=== PATIENT | male | born 1940 | race Caucasian/White ===

== ENCOUNTER 2019-02-03 10:48 | Inpatient (IN) | payer OTHER, MEDICARE ==
--- NOTE | 2019-02-03 11:05 | PDOC ---
History of Present Illness - General Chief Complaint: Palpitations Stated Complaint: SENT BY PCP Time Seen by Provider: 02/03/19 11:04 - History of Present Illness Initial Comments: 02/03/19 11:05 Mr. Montemayor is a 78 yo male w/ pmh of HTN, HLD, DM (currently managed with diet ) who presents on direction of PCP Dr. Prasad for evaluation of afib noted in office today. Patient otherwise has no complaints at this time and feels his normal self. The patient denies chest pain, shortness of breath, headache and dizziness. Denies fever, chills, nausea, vomit, diarrhea and constipation. Denies dysuria, frequency, urgency and hematuria. Past History - Past Medical History Allergies/Adverse Reactions: Allergies Allergy/AdvReac Type Severity Reaction Status Date / Time No Known Allergies Allergy Verified 02/03/19 10:56 Home Medications: Ambulatory Orders Aspirin [Ecotrin] 81 mg PO DAILY 02/03/19 Dutasteride [Avodart] 0.5 mg PO DAILY 02/03/19 Lisinopril [Prinivil] 5 mg PO DAILY 02/03/19 Lopressor - 100 mg PO BID 02/03/19 Metformin HCl [Metformin HCl ER] 500 mg PO DAILY 02/03/19 Simvastatin [Zocor] 10 mg PO HS 02/03/19 Cardiac Disorders: Yes (new a-fib) COPD: No Diabetes: Yes HTN: Yes Hypercholesterolemia: Yes - Psycho Social/Smoking Cessation Hx Smoking History: Never smoked Information on smoking cessation initiated: No Hx Alcohol Use: No Drug/Substance Use Hx: No Review of Systems - Review of Systems Comments:: 02/03/19 11:05 GENERAL/CONSTITUTIONAL: No fever or chills. No weakness. HEAD, EYES, EARS, NOSE AND THROAT: No change in vision. No ear pain or discharge. No sore throat. CARDIOVASCULAR: No chest pain or shortness of breath RESPIRATORY: No cough, wheezing, or hemoptysis. GASTROINTESTINAL: No nausea, vomiting, diarrhea or constipation. GENITOURINARY: No dysuria, frequency, or change in urination. MUSCULOSKELETAL: No joint or muscle swelling or pain. No neck or back pain. SKIN: No rash NEUROLOGIC: No headache, vertigo, loss of consciousness, or change in strength/ sensation. ENDOCRINE: No increased thirst. No abnormal weight change HEMATOLOGIC/LYMPHATIC: No anemia, easy bleeding, or history of blood clots. ALLERGIC/IMMUNOLOGIC: No hives or skin allergy. *Physical Exam - Vital Signs Last Vital Signs Temp Pulse Resp BP Pulse Ox 98.3 F 133 H 19 107/74 99 02/03/19 10:50 02/03/19 10:50 02/03/19 10:50 02/03/19 10:50 02/03/19 10:50 - Physical Exam Comments: 02/03/19 11:05 GENERAL: Awake, alert, and fully oriented, in no acute distress HEAD: No signs of trauma, normocephalic, atraumatic EYES: PERRLA, EOMI, sclera anicteric, conjunctiva clear ENT: Auricles normal inspection, hearing grossly normal, nares patent, oropharynx clear without exudates. Moist mucosa NECK: Normal ROM, supple, no lymphadenopathy, JVD, or masses LUNGS: No distress, speaks full sentences, clear to auscultation bilaterally HEART: +Tachycardic rate, afib rhytm, normal S1 and S2, no murmurs, rubs or gallops, peripheral pulses normal and equal bilaterally. ABDOMEN: Soft, nontender, normoactive bowel sounds. No guarding, no rebound. No masses EXTREMITIES: Normal inspection, Normal range of motion, no edema. No clubbing or cyanosis. NEUROLOGICAL: Cranial nerves II through XII grossly intact. Normal speech, normal gait, no focal sensorimotor deficits SKIN: Warm, Dry, normal turgor, no rashes or lesions noted. ED Treatment Course - LABORATORY CBC & Chemistry Diagram: 02/03/19 11:25 02/03/19 11:25 Medical Decision Making - Medical Decision Making 02/03/19 11:12 Mr. Montemayor is a 78 yo male w/ pmh as described who presents with new onset asymptomatic afib. Patient evaluated with cardiac labs and given diltiazem for treatment of tachycardia. Patient exam otherwise non-contributory. Patient will be admitted for further cardiac evaluation and care. Laboratory Results - last 24 hr 02/03/19 02/03/19 02/03/19 11:25 11:25 11:25 WBC 7.3 RBC 5.01 Hgb 15.9 Hct 47.2 MCV 94.3 MCH 31.8 MCHC 33.7 RDW 13.2 Plt Count 252 MPV 9.5 D Absolute Neuts (auto) 5.0 Neutrophils % 67.7 Lymphocytes % 22.7 Monocytes % 7.2 Eosinophils % 1.8 Basophils % 0.6 Nucleated RBC % 0 PT with INR INR PTT (Actin FS) Sodium 141 Potassium 4.6 Chloride 108 H Carbon Dioxide 27 Anion Gap 6 L BUN 18.0 Creatinine 0.9 Est GFR (CKD-EPI)AfAm 93.82 Est GFR (CKD-EPI)NonAf 80.95 Random Glucose 90 Calcium 9.8 Total Bilirubin 0.4 AST 18 ALT 32 Alkaline Phosphatase 50 Creatine Kinase 40 Troponin I < 0.02 Total Protein 7.5 Albumin 3.9 TSH 1.54 Urine Color Urine Appearance Urine pH Ur Specific [place] Urine Protein Urine Glucose (UA) Urine Ketones Urine Blood Urine Nitrite Urine Bilirubin Urine Urobilinogen Ur Leukocyte Esterase 02/03/19 02/03/19 11:25 11:39 WBC RBC Hgb Hct MCV MCH MCHC RDW Plt Count MPV Absolute Neuts (auto) Neutrophils % Lymphocytes % Monocytes % Eosinophils % Basophils % Nucleated RBC % PT with INR 12.90 INR 1.09 PTT (Actin FS) 31.8 Sodium Potassium Chloride Carbon Dioxide Anion Gap BUN Creatinine Est GFR (CKD-EPI)AfAm Est GFR (CKD-EPI)NonAf Random Glucose Calcium Total Bilirubin AST ALT Alkaline Phosphatase Creatine Kinase Troponin I Total Protein Albumin TSH Urine Color Dk yellow Urine Appearance Clear Urine pH 5.0 Ur Specific [place] 1.019 Urine Protein Trace Urine Glucose (UA) Negative Urine Ketones Negative Urine Blood Negative Urine Nitrite Negative Urine Bilirubin Negative Urine Urobilinogen 0.2 Ur Leukocyte Esterase Negative Discharge - Discharge Information Problems reviewed: Yes Clinical Impression/Diagnosis: Afib Qualifiers: Atrial fibrillation type: unspecified Qualified Code(s): I48.91 - Unspecified atrial fibrillation - Admission Yes - Follow up/Referral - Patient Discharge Instructions - Post Discharge Activity
[2019-02-03 11:47] LABS: BASO % 0.6 % (0-2.0); EOS % 1.8 % (0-4.5); HEMATOCRIT 47.2 % (35.4-49); HEMOGLOBIN 15.9 GM/dL (11.7-16.9); LYMPH % 22.7 % (8-40); MCH 31.8 pg (25.7-33.7); MCHC 33.7 g/dl (32.0-35.9); MEAN CELL VOLUME 94.3 fl (80-96); MEAN PLT VOLUME 9.5 fl (7.5-11.1); MONO % 7.2 % (3.8-10.2); NEUT % 67.7 % (42.8-82.8); PLATELET COUNT 252 K/MM3 (134-434); RBC 5.01 M/mm3 (4.00-5.60); RDW 13.2 % (11.9-15.9); WHITE BLOOD COUNT 7.3 K/mm3 (4.0-10.0)
[2019-02-03 11:53] LABS: URINE APPEARANCE CLEAR; URINE BILIRUBIN NEGATIVE (NEGATIVE); URINE COLOR DK YELLOW; URINE GLUCOSE (UA) NEGATIVE (NEGATIVE); URINE KETONE NEGATIVE (NEGATIVE); URINE LEUK ESTERASE NEGATIVE (NEGATIVE); URINE NITRITE NEGATIVE (NEGATIVE); URINE PROTEIN TRACE (NEGATIVE); URINE UROBILINOGEN 0.2 mg/dL (0.2-1.0)
[2019-02-03 12:00] LABS: INR 1.09 (0.83-1.09); PROTHROMBIN TIME (PATIENT) 12.9 SEC (9.7-13.0)
[2019-02-03 12:03] LABS: ACTIVATED PTT 31.8 SECONDS (25.2-36.5)
[2019-02-03 12:16] LABS: ALBUMIN 3.9 g/dl (3.4-5.0); ALK PHOS 50 U/L (45-117); ANION GAP 6 MMOL/L (8-16); BILIRUBIN,TOTAL 0.4 mg/dL (0.2-1); CALCIUM 9.8 mg/dL (8.5-10.1); CHLORIDE 108 mmol/L (98-107); CO2 27 mmol/L (21-32); CREATININE 0.9 mg/dL (0.55-1.3); GLUCOSE,RANDOM 90 mg/dL (74-106); POTASSIUM 4.6 mmol/L (3.5-5.1); SGOT/AST 18 U/L (15-37); SGPT/ALT 32 U/L (13-61); SODIUM 141 mmol/L (136-145); TOT PROT 7.5 g/dl (6.4-8.2)
[2019-02-03] MEDS ORDERED: SODIUM CHLORIDE 1,000 ML IV STA (12:23)
[2019-02-03] MEDS ORDERED: dilTIAZem HCL 50 MG/10 ML - 10 ML VIAL IVPUSH ONE (12:23)
--- NOTE | 2019-02-03 12:37 | PDOC ---
Attending Attestation - Resident Resident Name: Rashel Almazan - ED Attending Attestation I have performed the following: I have examined & evaluated the patient, The case was reviewed & discussed with the resident, I agree w/resident's findings & plan, Exceptions are as noted - HPI HPI: 02/03/19 12:31 78-year-old male history of hypertension recently diagnosed diabetes here today from his primary's office for noted irregular heartbeat and tachycardia. Patient denies any current symptoms. Denies feeling short of breath no chest pain no palpitations. Also denies any cough or recent infectious symptoms no urinary complaints. No history of previous dysrhythmia or VT overall has no current complaints - Physicial Exam PE: 02/03/19 12:36 awake alert lungs clear bilat heart irreg reg no mrg abd soft nt nd ext wwp. no edema. no calf tenderness, skin warm and dry. 02/03/19 13:00 - Medical Decision Making 02/03/19 12:40 78-year-old male history of hypertension and diabetes here with new onset A. fib with RVR. Patient's rate in the emergency part is ranging from 79-130. Will rule out underlying letter to light abnormality or anemia, VT, or thyroid abnormalities. Patient was seen at the bedside by Khoa Quezada who will admit the patient to telemetry. Chest x-ray to rule out any underlying infection or edema Heart Score/ECG Review #1 Compared to previous ECG there are: Other (irreg irreg. rate 129. aflutter, with fib. no st t wave elevation or depression.)
[2019-02-03] MEDS ORDERED: METOPROLOL TARTRATE 50 MG TABLET (FP) PO ONE (12:50)
--- NOTE | 2019-02-03 12:57 | HP ---
Admitting History and Physical - Primary Care Physician PCP: King Stone - Admission Chief Complaint: abnormal heart beat History of Present Illness: Asymptomatic 78 YO M with hx lipidemia; DM; Htn, BPH who was sent from PCP's office (Dr Prasad) to ER after he was found to be in new onset rapid atrial fibrillation. he states to being active around the house as usual and has had no complaints or any CP; SOB, dizziness, leg swelling etc. He was seen by his PCP just for a periodic routine "check up". he denies use of alcoholic drinks, smoking, excessive stress. His glucoses usually range in the low 100's and according to PCP, he recent A1c was 5.8. 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 - Smoking History Smoking history: Never smoked - Alcohol/Substance Use Hx Alcohol Use: No History of Substance Use: reports: None - Social History Usual Living Arrangement: Yes: With Spouse ADL: Independent Occupation: retired building superintendant History of Recent Travel: No Home Medications - Allergies Allergies/Adverse Reactions: Allergies Allergy/AdvReac Type Severity Reaction Status Date / Time No Known Allergies Allergy Verified 02/03/19 10:56 - Home Medications Home Medications: Ambulatory Orders Aspirin [Ecotrin] 81 mg PO DAILY 02/03/19 Dutasteride [Avodart] 0.5 mg PO DAILY 02/03/19 Lisinopril [Prinivil] 5 mg PO DAILY 02/03/19 Lopressor - 100 mg PO BID 02/03/19 Metformin HCl [Metformin HCl ER] 500 mg PO DAILY 02/03/19 Simvastatin [Zocor] 10 mg PO HS 02/03/19 Family Medical History Family History: Unremarkable Review of Systems - Review of Systems Constitutional: reports: No Symptoms Eyes: reports: No Symptoms HENT: reports: No Symptoms Neck: reports: No Symptoms Cardiovascular: reports: No Symptoms Respiratory: reports: No Symptoms Gastrointestinal: reports: No Symptoms Genitourinary: reports: Frequency Musculoskeletal: reports: No Symptoms Integumentary: reports: No Symptoms Neurological: reports: No Symptoms Endocrine: reports: No Symptoms Hematology/Lymphatic: reports: No Symptoms Psychiatric: reports: No Symptoms Physical Examination Vital Signs: Vital Signs Temperature 98.4 F 02/03/19 11:41 Pulse Rate 107 H 02/03/19 11:41 Respiratory Rate 16 02/03/19 11:41 Blood Pressure 125/83 02/03/19 11:41 O2 Sat by Pulse Oximetry (%) 100 02/03/19 11:41 Findings/Remarks: skin--no remarkable lesions appreciated head--NC eyes--eomi; anicteric pupils equal oral--partial dentures, no mucosal lesions, no droop neck--no masses, nodes goiter or bruits lungs--grossly clear heart--Irreg abd--benign back--no spinal tenderness --deferred to PCP ext--dimnished pedal pulses; no ischemic changes; no CCE; ROM is painless; absent Rt 1st toe neuro--alert; lucid; coherent, no gross focal deficits appreciated Laboratory Tests 02/03/19 02/03/19 02/03/19 11:25 11:25 11:25 WBC 7.3 RBC 5.01 Hgb 15.9 Hct 47.2 MCV 94.3 MCH 31.8 MCHC 33.7 RDW 13.2 Plt Count 252 MPV 9.5 D Absolute Neuts (auto) 5.0 Neutrophils % 67.7 Lymphocytes % 22.7 Monocytes % 7.2 Eosinophils % 1.8 Basophils % 0.6 Nucleated RBC % 0 PT with INR INR PTT (Actin FS) Sodium 141 Potassium 4.6 Chloride 108 H Carbon Dioxide 27 Anion Gap 6 L BUN 18.0 Creatinine 0.9 Est GFR (CKD-EPI)AfAm 93.82 Est GFR (CKD-EPI)NonAf 80.95 Random Glucose 90 Calcium 9.8 Total Bilirubin 0.4 AST 18 ALT 32 Alkaline Phosphatase 50 Creatine Kinase 40 Troponin I < 0.02 Total Protein 7.5 Albumin 3.9 TSH 1.54 Urine Color Urine Appearance Urine pH Ur Specific [place] Urine Protein Urine Glucose (UA) Urine Ketones Urine Blood Urine Nitrite Urine Bilirubin Urine Urobilinogen Ur Leukocyte Esterase 02/03/19 02/03/19 11:25 11:39 WBC RBC Hgb Hct MCV MCH MCHC RDW Plt Count MPV Absolute Neuts (auto) Neutrophils % Lymphocytes % Monocytes % Eosinophils % Basophils % Nucleated RBC % PT with INR 12.90 INR 1.09 PTT (Actin FS) 31.8 Sodium Potassium Chloride Carbon Dioxide Anion Gap BUN Creatinine Est GFR (CKD-EPI)AfAm Est GFR (CKD-EPI)NonAf Random Glucose Calcium Total Bilirubin AST ALT Alkaline Phosphatase Creatine Kinase Troponin I Total Protein Albumin TSH Urine Color Dk yellow Urine Appearance Clear Urine pH 5.0 Ur Specific [place] 1.019 Urine Protein Trace Urine Glucose (UA) Negative Urine Ketones Negative Urine Blood Negative Urine Nitrite Negative Urine Bilirubin Negative Urine Urobilinogen 0.2 Ur Leukocyte Esterase Negative Labs: CBC, BMP 02/03/19 11:25 02/03/19 11:25 Imaging - Results EKG: Report Reviewed Problem List - Problems (1) Atrial flutter with rapid ventricular response Assessment/Plan: mostly rapid with periods of slowing. New onset w/o Sx or hemodynamic fluctuations. PLAN: slow HR; monitoring; Cardio consult; may need a/c Code(s): I48.92 - UNSPECIFIED ATRIAL FLUTTER (2) Hypertension Assessment/Plan: longstanding; BP had been controlled with MICHELLE-I and BB Code(s): I10 - ESSENTIAL (PRIMARY) HYPERTENSION Qualifiers: Hypertension type: unspecified Qualified Code(s): I10 - Essential (primary ) hypertension (3) Lipid disorder Assessment/Plan: on Statin; check levels Code(s): E78.9 - DISORDER OF LIPOPROTEIN METABOLISM, UNSPECIFIED (4) BPH (benign prostatic hyperplasia) Assessment/Plan: mild Sx; Tx with adovart Code(s): N40.0 - BENIGN PROSTATIC HYPERPLASIA WITHOUT LOWER URINRY TRACT SYMP Qualifiers: Lower urinary tract symptom presence: symptoms present Assessment/Plan 78 YO with new onset rapid atrial fib/flutter; Mgmt as above ~~~~~~~~~~~~~~~~~~~~~~~~~~~~~~~~~ Dr Stone
[2019-02-03] MEDS ORDERED: dilTIAZem HCL 125 MG/25 ML - 25 ML VIAL ONE (13:27)
[2019-02-03] MEDS ORDERED: METOPROLOL TARTRATE 50 MG TABLET (FP) ONE (13:38)
--- NOTE | 2019-02-03 16:11 | EKG ---
Test Reason : Blood Pressure : / mmHG Vent. Rate : 062 BPM Atrial Rate : 272 BPM P-R Int : 000 ms QRS Dur : 088 ms QT Int : 394 ms P-R-T Axes : -89 007 038 degrees QTc Int : 399 ms ATRIAL FLUTTER WITH VARIABLE A-V BLOCK ABNORMAL ECG WHEN COMPARED WITH ECG OF 03-FEB-2019 11:00, T WAVE VARIATION Confirmed by JULIANNE HASTINGS MD ([id number]) on 02/03/2019 4:11:24 PM Referred By: Confirmed By:JULIANNE HASTINGS MD
--- NOTE | 2019-02-03 16:15 | EKG ---
Test Reason : Blood Pressure : / mmHG Vent. Rate : 126 BPM Atrial Rate : 129 BPM P-R Int : 000 ms QRS Dur : 090 ms QT Int : 322 ms P-R-T Axes : 000 012 029 degrees QTc Int : 466 ms ATRIAL VLUTTER WITH RAPID VENTRICULAR RESPONSE NONSPECIFIC T WAVE ABNORMALITY ABNORMAL ECG NO PREVIOUS ECGS AVAILABLE Confirmed by DARLING OCHOA, JULIANNE ([id number]) on 02/03/2019 4:15:08 PM Referred By: Confirmed By:JULIANNE HASTINGS MD
[2019-02-03 18:33] VITALS: BMI 26.9
--- NOTE | 2019-02-03 19:28 | CON.CARD ---
Consult Consult Specialty:: Cardiology - History of Present Illness History of Present Illness: 78 YO M with hx lipidemia; DM; Htn, BPH who was sent from PCP's office (Dr Prasad) to ER after he was found to be in new onset rapid atrial fibrillation. he states to being active around the house as usual and has had no complaints or any CP; SOB, dizziness, leg swelling etc. He was seen by his PCP just for a periodic routine "check up". he denies use of alcoholic drinks, smoking, excessive stress. His glucoses usually range in the low 100's and according to PCP, he recent A1c was 5.8. - History Source History Provided By: Patient, Medical Record - Past Medical History Cardio/Vascular: Yes: HTN, Hyperlipdemia Renal/: Yes: BPH - Alcohol/Substance Use Hx Alcohol Use: No History of Substance Use: reports: None - Smoking History Smoking history: Never smoked - Social History ADL: Independent Occupation: retired building superintendant History of Recent Travel: No Home Medications - Allergies Allergies/Adverse Reactions: Allergies Allergy/AdvReac Type Severity Reaction Status Date / Time No Known Allergies Allergy Verified 02/03/19 10:56 - Home Medications Home Medications: Ambulatory Orders Aspirin [Ecotrin] 81 mg PO DAILY 02/03/19 Dutasteride [Avodart] 0.5 mg PO DAILY 02/03/19 Lisinopril [Prinivil] 5 mg PO DAILY 02/03/19 Lopressor - 100 mg PO BID 02/03/19 Metformin HCl [Metformin HCl ER] 500 mg PO DAILY 02/03/19 Simvastatin [Zocor] 10 mg PO HS 02/03/19 Review of Systems - Review of Systems Constitutional: reports: No Symptoms Eyes: reports: No Symptoms HENT: reports: No Symptoms Neck: reports: No Symptoms Cardiovascular: reports: No Symptoms Respiratory: reports: No Symptoms Gastrointestinal: reports: No Symptoms Genitourinary: reports: No Symptoms Breasts: reports: No Symptoms Reported Musculoskeletal: reports: No Symptoms Integumentary: reports: No Symptoms Neurological: reports: No Symptoms Endocrine: reports: No Symptoms Hematology/Lymphatic: reports: No Symptoms Psychiatric: reports: No Symptoms Vital Signs: Vital Signs Temperature 97.8 F 02/03/19 18:00 Pulse Rate 67 02/03/19 18:00 Respiratory Rate 18 02/03/19 18:00 Blood Pressure 139/71 02/03/19 18:00 O2 Sat by Pulse Oximetry (%) 95 02/03/19 18:00 Constitutional: Yes: Well Nourished, No Distress, Calm Eyes: Yes: WNL, Conjunctiva Clear, EOM Intact HENT: Yes: WNL, Atraumatic, Normocephalic Neck: Yes: WNL, Supple, Trachea Midline Respiratory: Yes: WNL, Regular, CTA Bilaterally Gastrointestinal: Yes: WNL, Normal Bowel Sounds Renal/: Yes: WNL Cardiovascular: Yes: Pulse Irregular Musculoskeletal: Yes: WNL Extremities: Yes: WNL Integumentary: Yes: WNL Neurological: Yes: WNL, Alert, Oriented ...Motor Strength: WNL Psychiatric: Yes: WNL, Alert, Oriented - Other Data Labs, Other Data: CBC, BMP 02/03/19 11:25 02/03/19 11:25 INR, PTT INR 1.09 (0.83-1.09) 02/03/19 11:25 Troponin, BNP 02/03/19 11:25 Troponin I < 0.02 Troponin, BNP 02/03/19 11:25 Troponin I < 0.02 Imaging - Results Chest X-ray: Pending EKG: Image Reviewed (af lutter variable block) Problem List - Problems (1) Afib Code(s): I48.91 - UNSPECIFIED ATRIAL FIBRILLATION Qualifiers: Atrial fibrillation type: unspecified Qualified Code(s): I48.91 - Unspecified atrial fibrillation (2) Atrial flutter with rapid ventricular response Code(s): I48.92 - UNSPECIFIED ATRIAL FLUTTER (3) BPH (benign prostatic hyperplasia) Code(s): N40.0 - BENIGN PROSTATIC HYPERPLASIA WITHOUT LOWER URINRY TRACT SYMP Qualifiers: Lower urinary tract symptom presence: symptoms present (4) Hypertension Code(s): I10 - ESSENTIAL (PRIMARY) HYPERTENSION Qualifiers: Hypertension type: unspecified Qualified Code(s): I10 - Essential (primary ) hypertension (5) Lipid disorder Code(s): E78.9 - DISORDER OF LIPOPROTEIN METABOLISM, UNSPECIFIED Assessment/Plan 78 YO M with hx lipidemia; DM; Htn, BPH who was sent from PCP's office (Dr Prasad) to ER after he was found to be in new onset rapid atrial flutter. he states to being active around the house as usual and has had no complaints or any CP; SOB, dizziness, leg swelling etc. He was seen by his PCP just for a periodic routine "check up". he denies use of alcoholic drinks, smoking, excessive stress. His glucoses usually range in the low 100's and according to PCP, he recent A1c was 5.8. Plan; Telemetry ECHO AC Rate control Further course will depend on ECHO results - ?ERMIAS guided cardioversion vs fpc AC
[2019-02-03] MEDS: APIXABAN 5 MG TABLET PO SCH (21:48)
[2019-02-03] MEDS: METOPROLOL TARTRATE 50 MG TABLET (FP) PO SCH (21:48)
[2019-02-03] MEDS ORDERED: APIXABAN 5 MG TABLET PO ONE (22:00)
[2019-02-04] MEDS: METOPROLOL TARTRATE 50 MG TABLET (FP) PO SCH ×5 (06:33→23:05)
[2019-02-04 07:38] LABS: BLOOD UREA NITROGEN 16.3 mg/dL (7-18); CALCIUM 8.9 mg/dL (8.5-10.1); CREATININE 0.9 mg/dL (0.55-1.3); POTASSIUM 4.5 mmol/L (3.5-5.1)
--- NOTE | 2019-02-04 09:48 | PN ---
Progress Note, Physician Chief Complaint: Pt is A&Ox3; asymptomatic. History of Present Illness: 78-year-old white man (b. Jorge Alberto), with PM history of hypertension, recently diagnosed diabetes, admitted yesterday when sent from his primary's office for noted irregular heartbeat and tachycardia, and found to be in ?new-onset atrial flutter. Patient denies any current symptoms. Denies feeling short of breath no chest pain no palpitations. Also denies any cough or recent infectious symptoms no urinary complaints. No history of previous dysrhythmia or ND; overall has no current complaints - Current Medication List Current Medications: Active Medications Apixaban (Eliquis -) 5 mg PO BID [facility] Last Admin: 02/03/19 21:48 Dose: 5 mg Metoprolol Tartrate (Lopressor -) 50 mg PO TID [facility] Last Admin: 02/04/19 06:33 Dose: 50 mg - Objective Vital Signs: Vital Signs Temperature 97.6 F 02/04/19 05:00 Pulse Rate 69 02/04/19 05:00 Respiratory Rate 20 02/04/19 05:00 Blood Pressure 113/70 02/04/19 05:00 O2 Sat by Pulse Oximetry (%) 97 02/03/19 20:44 Constitutional: Yes: Well Nourished, Calm Eyes: Yes: WNL HENT: Yes: WNL Neck: Yes: WNL Cardiovascular: Yes: Pulse Irregular, S1 (varies ijn intensity), S2 Respiratory: Yes: WNL Gastrointestinal: Yes: Soft Genitourinary: Yes: WNL Breast(s): Yes: WNL Musculoskeletal: Yes: WNL Extremities: Yes: WNL Edema: No Peripheral Pulses WNL: Yes Integumentary: Yes: WNL Wound/Incision: Yes: Other (NA) Neurological: Yes: WNL ...Motor Strength: WNL Psychiatric: Yes: WNL Labs: CBC, BMP 02/03/19 11:25 02/04/19 05:30 INR, PTT INR 1.09 (0.83-1.09) 02/03/19 11:25 Abnormal Lab Results 02/03/19 02/04/19 11:25 05:30 Chloride 108 H 108 H Anion Gap 6 L 5 L Random Glucose 130 H HDL Cholesterol 32 L Problem List - Problems (1) Atrial flutter Code(s): I48.92 - UNSPECIFIED ATRIAL FLUTTER (2) New onset atrial flutter Assessment/Plan: On metoprolol tartrate 50 mg tid; change to ER if VR remains controlled. Telemetry: Atrial flutter with variable AV block F/u ECHO for LVEF, chamber sizes, valve status. Consider ERMIAS-guided cardioversion (especially if LA sizes is relatively normal). Code(s): I48.92 - UNSPECIFIED ATRIAL FLUTTER (3) Hypertension Assessment/Plan: on metoprolol; BP well-controlled. Code(s): I10 - ESSENTIAL (PRIMARY) HYPERTENSION Qualifiers: Hypertension type: unspecified Qualified Code(s): I10 - Essential (primary ) hypertension (4) Lipid disorder Code(s): E78.9 - DISORDER OF LIPOPROTEIN METABOLISM, UNSPECIFIED
[2019-02-04] MEDS: APIXABAN 5 MG TABLET PO SCH ×2 (09:50→23:06)
--- NOTE | 2019-02-04 13:06 | ECHO ---
Version: 1 Name: DOMENIC ZAMBRANO Exam: Adult Echocardiogram Study Date: 02/04/2019, 7:26 AM Age: 78 Years MMode/2D Measurements & Calculations IVSd: 1.16 cm LVIDs: 2.32 cm LVIDd: 3.4 cm LVPWd: 1.11 cm LAV (MOD-bp): 72.9 ml LVOT diam: 1.97 cm Ao root diam: 3.1 cm LA dimension: 3.6 cm Doppler Measurements & Calculations MV E max jonah: 86.3 cm/sec Med E/e': 11.2 MV A max jonah: 47.5 cm/sec Med Peak E' Jonah: 7.7 cm/sec MV E/A: 1.82 Lat E/e': 5.5 Lat Peak E' Jonah: 15.7 cm/sec MR max P.8 mmHg Ao max P.1 mmHg Ao V2 max: 112.7 cm/sec AI P1/2t: 391.1 msec TR max jonah: 265.5 cm/sec TR max P.9 mmHg Left Ventricle The left ventricular size, thickness and function are normal. Ejection Fraction = 65%. The transmitr al spectral Doppler flow pattern is suggestive of impaired LV relaxation. Right Ventricle The right ventricle is normal in size and function. Atria Normal left and right atrial size and function. Mitral Valve There is mild mitral annular calcification. There is trace to mild mitral regurgitation. Tricuspid Valve The tricuspid valve is normal in structure and function. There is mild tricuspid regurgitation. Aortic Valve There is mild to moderate aortic sclerosis.;. Pulmonic Valve The pulmonic valve is not well visualized. Great Vessels The aortic root is normal size. Normal aortic arch, descending and ascending aorta. Pericardium/Pleura There is no pericardial effusion. Summary Statements The left ventricular size, thickness and function are normal Ejection Fraction = 65%. The transmitral spectral Doppler flow pattern is suggestive of impaired LV relaxation. The right ventricle is normal in size and function. Normal left and right atrial size and function. There is mild mitral annular calcification. There is trace to mild mitral regurgitation. The tricuspid valve is normal in structure and function. There is mild tricuspid regurgitation. There is mild to moderate aortic sclerosis.; The pulmonic valve is not well visualized. The aortic root is normal size. Normal aortic arch, descending and ascending aorta There is no pericardial effusion. Fred Patterson 02/04/2019, 12:05 PM Ordering Physician: King Stone Performed By: Kate Durham
--- NOTE | 2019-02-04 13:55 | PN ---
Progress Note (short form) - Note Progress Note: Current Medications Active Medications Apixaban (Eliquis -) 5 mg PO BID [facility] Last Admin: 02/04/19 09:50 Dose: 5 mg Metoprolol Tartrate (Lopressor -) 50 mg PO TID [facility] Last Admin: 02/04/19 13:31 Dose: 50 mg Laboratory Results - last 24 hr 02/03/19 02/04/19 02/04/19 21:00 05:30 05:30 Sodium 141 Potassium 4.5 Chloride 108 H Carbon Dioxide 27 Anion Gap 5 L BUN 16.3 Creatinine 0.9 Est GFR (CKD-EPI)AfAm 93.82 Est GFR (CKD-EPI)NonAf 80.95 POC Glucometer Random Glucose 130 H Hemoglobin A1c % 5.7 Calcium 8.9 Creatine Kinase 34 Troponin I < 0.02 Triglycerides 83 Cholesterol 122 Total LDL Cholesterol 75 HDL Cholesterol 32 L 02/04/19 05:47 Sodium Potassium Chloride Carbon Dioxide Anion Gap BUN Creatinine Est GFR (CKD-EPI)AfAm Est GFR (CKD-EPI)NonAf POC Glucometer 117 Random Glucose Hemoglobin A1c % Calcium Creatine Kinase Troponin I Triglycerides Cholesterol Total LDL Cholesterol HDL Cholesterol Vital Signs Period Temp Pulse Resp BP Sys/Larson Pulse Ox Last 24 Hr 97.6 F-98.2 F 67-73 16-20 109-139/62-73 95-98 CC: none today ````````````````` skin--Nl color heart--rapid at this time lungs--clear ext--no edema neuro--alert, lucid; coherent in NAD ``````````````````````````````````` Summ > ATF--variable HR; was fluctuating over night; was less tachy this AM, but now running at approx 120/min: PLAN: increase the BB to Q6H > Htn--BP is in good range > DM--T2; BS low 100's > Lipidemia--levels in good range; cont statin ````````````````` Dr Stone Problem List - Problems (1) Atrial flutter with rapid ventricular response Code(s): I48.92 - UNSPECIFIED ATRIAL FLUTTER (2) Hypertension Code(s): I10 - ESSENTIAL (PRIMARY) HYPERTENSION Qualifiers: Hypertension type: unspecified Qualified Code(s): I10 - Essential (primary ) hypertension (3) Lipid disorder Code(s): E78.9 - DISORDER OF LIPOPROTEIN METABOLISM, UNSPECIFIED (4) BPH (benign prostatic hyperplasia) Code(s): N40.0 - BENIGN PROSTATIC HYPERPLASIA WITHOUT LOWER URINRY TRACT SYMP Qualifiers: Lower urinary tract symptom presence: symptoms present
[2019-02-04 19:34] LABS: MAGNESIUM 1.9 mg/dL (1.8-2.4)
[2019-02-05] MEDS: METOPROLOL TARTRATE 50 MG TABLET (FP) PO SCH ×4 (06:43→23:21)
[2019-02-05] MEDS: APIXABAN 5 MG TABLET PO SCH ×2 (10:06→22:31)
--- NOTE | 2019-02-05 11:22 | PN ---
Progress Note, Physician History of Present Illness: 78 YO M with hx lipidemia; DM; Htn, BPH who was sent from PCP's office (Dr Prasad) to ER after he was found to be in new onset rapid atrial fibrillation. he states to being active around the house as usual and has had no complaints or any CP; SOB, dizziness, leg swelling etc. He was seen by his PCP just for a periodic routine "check up". he denies use of alcoholic drinks, smoking, excessive stress. His glucoses usually range in the low 100's and according to PCP, he recent A1c was 5.8. - Current Medication List Current Medications: Active Medications Apixaban (Eliquis -) 5 mg PO BID [facility] Last Admin: 02/05/19 10:06 Dose: 5 mg Metoprolol Tartrate (Lopressor -) 50 mg PO Q6HPO [facility] Last Admin: 02/05/19 06:43 Dose: 50 mg - Objective Vital Signs: Vital Signs Temperature 97.8 F 02/05/19 09:00 Pulse Rate 89 02/05/19 10:54 Respiratory Rate 18 02/05/19 09:00 Blood Pressure 130/84 02/05/19 09:00 O2 Sat by Pulse Oximetry (%) 100 02/05/19 10:54 Eyes: Yes: WNL, Conjunctiva Clear, EOM Intact HENT: Yes: WNL, Atraumatic, Normocephalic Neck: Yes: WNL, Supple, Trachea Midline Cardiovascular: Yes: Pulse Irregular Respiratory: Yes: WNL, Regular, CTA Bilaterally Gastrointestinal: Yes: WNL, Normal Bowel Sounds Genitourinary: Yes: WNL Musculoskeletal: Yes: WNL Extremities: Yes: WNL Edema: No Integumentary: Yes: WNL Neurological: Yes: WNL, Alert, Oriented ...Motor Strength: WNL Psychiatric: Yes: WNL Labs: CBC, BMP 02/03/19 11:25 02/04/19 05:30 INR, PTT INR 1.09 (0.83-1.09) 02/03/19 11:25 Problem List - Problems (1) Afib Code(s): I48.91 - UNSPECIFIED ATRIAL FIBRILLATION Qualifiers: Atrial fibrillation type: unspecified Qualified Code(s): I48.91 - Unspecified atrial fibrillation (2) Atrial flutter with rapid ventricular response Code(s): I48.92 - UNSPECIFIED ATRIAL FLUTTER (3) BPH (benign prostatic hyperplasia) Code(s): N40.0 - BENIGN PROSTATIC HYPERPLASIA WITHOUT LOWER URINRY TRACT SYMP Qualifiers: Lower urinary tract symptom presence: symptoms present (4) Hypertension Code(s): I10 - ESSENTIAL (PRIMARY) HYPERTENSION Qualifiers: Hypertension type: unspecified Qualified Code(s): I10 - Essential (primary ) hypertension (5) Lipid disorder Code(s): E78.9 - DISORDER OF LIPOPROTEIN METABOLISM, UNSPECIFIED Assessment/Plan - Problems (1) Atrial flutter Code(s): I48.92 - UNSPECIFIED ATRIAL FLUTTER (2) New onset atrial flutter Assessment/Plan: On metoprolol tartrate 50 mg tid; change to ER if VR remains controlled. Telemetry: Atrial flutter with variable AV block F/u ECHO for LVEF, chamber sizes, valve status. Consider ERMIAS-guided cardioversion (especially if LA sizes is relatively normal). Code(s): I48.92 - UNSPECIFIED ATRIAL FLUTTER (3) Hypertension Assessment/Plan: on metoprolol; BP well-controlled. Code(s): I10 - ESSENTIAL (PRIMARY) HYPERTENSION Qualifiers: Hypertension type: unspecified Qualified Code(s): I10 - Essential (primary ) hypertension (4) Lipid disorder Code(s): E78.9 - DISORDER OF LIPOPROTEIN METABOLISM, UNSPECIFIED
--- NOTE | 2019-02-05 13:15 | PN ---
Progress Note (short form) - Note Progress Note: Current Medications Apixaban (Eliquis -) 5 mg PO BID [facility] Last Admin: 02/05/19 10:06 Dose: 5 mg Metoprolol Tartrate (Lopressor -) 50 mg PO Q6HPO [facility] Last Admin: 02/05/19 06:43 Dose: 50 mg Laboratory Results - last 24 hr 02/04/19 02/04/19 02/05/19 05:30 16:35 11:41 Sodium 141 Potassium 4.5 Chloride 108 H Carbon Dioxide 27 Anion Gap 5 L BUN 16.3 Creatinine 0.9 Est GFR (CKD-EPI)AfAm 93.82 Est GFR (CKD-EPI)NonAf 80.95 POC Glucometer 115 84 Random Glucose 130 H Calcium 8.9 Magnesium 1.9 Triglycerides 83 Cholesterol 122 Total LDL Cholesterol 75 HDL Cholesterol 32 L Vital Signs Temperature 97.8 F 02/05/19 09:00 Pulse Rate 89 02/05/19 10:54 Respiratory Rate 18 02/05/19 09:00 Blood Pressure 130/84 02/05/19 09:00 O2 Sat by Pulse Oximetry (%) 100 02/05/19 10:54 CC: none today ````````````````` skin--Nl color heart--HR variable lungs--clear ext--no edema neuro--alert, lucid; coherent in NAD ``````````````````````````````````` Summ > ATF--variable HR; less tachy on current dose of BB; echo shows NL atrial size : PLAN: for ERMIAS cardioversion in AM as per Cardiology > Htn--BP is in good range > DM--T2; BS low 100's > Lipidemia--levels in good range; cont statin ````````````````` Dr Stone Problem List - Problems (1) Atrial flutter with rapid ventricular response Code(s): I48.92 - UNSPECIFIED ATRIAL FLUTTER (2) Hypertension Code(s): I10 - ESSENTIAL (PRIMARY) HYPERTENSION Qualifiers: Hypertension type: unspecified Qualified Code(s): I10 - Essential (primary ) hypertension (3) Lipid disorder Code(s): E78.9 - DISORDER OF LIPOPROTEIN METABOLISM, UNSPECIFIED (4) BPH (benign prostatic hyperplasia) Code(s): N40.0 - BENIGN PROSTATIC HYPERPLASIA WITHOUT LOWER URINRY TRACT SYMP Qualifiers: Lower urinary tract symptom presence: symptoms present
[2019-02-06] MEDS: METOPROLOL TARTRATE 50 MG TABLET (FP) PO SCH ×4 (06:01→23:24)
[2019-02-06] MEDS: APIXABAN 5 MG TABLET PO SCH ×2 (09:41→22:43)
--- NOTE | 2019-02-06 11:02 | PN ---
Progress Note (short form) - Note Progress Note: Current Medications Apixaban (Eliquis -) 5 mg PO BID [facility] Last Admin: 02/06/19 09:41 Dose: Not Given Metoprolol Tartrate (Lopressor -) 50 mg PO Q6HPO [facility] Last Admin: 02/06/19 06:01 Dose: 50 mg Laboratory Results - last 24 hr 02/05/19 02/05/19 02/06/19 11:41 17:59 05:58 POC Glucometer 84 100 119 Vital Signs Temperature 97.5 F L 02/06/19 05:00 Pulse Rate 133 H 02/06/19 09:00 Respiratory Rate 18 02/06/19 09:00 Blood Pressure 130/89 02/06/19 09:00 O2 Sat by Pulse Oximetry (%) 98 02/06/19 08:33 CC: none ````````````````` skin--Nl color(mild facial flushing) heart--HR rapid lungs--clear ext--no edema neuro--alert, lucid; coherent in NAD ``````````````````````````````````` Summ > ATF--variable HR; echo shows NL atrial size: PLAN: for ERMIAS cardioversion > Htn--BP is in good range > DM--T2; BS low 100's > Lipidemia--levels in good range; cont statin ````````````````` Other: at bedside ``````````````````````````` Dr Stone Problem List - Problems (1) Atrial flutter with rapid ventricular response Code(s): I48.92 - UNSPECIFIED ATRIAL FLUTTER (2) Hypertension Code(s): I10 - ESSENTIAL (PRIMARY) HYPERTENSION Qualifiers: Hypertension type: unspecified Qualified Code(s): I10 - Essential (primary ) hypertension (3) Lipid disorder Code(s): E78.9 - DISORDER OF LIPOPROTEIN METABOLISM, UNSPECIFIED (4) BPH (benign prostatic hyperplasia) Code(s): N40.0 - BENIGN PROSTATIC HYPERPLASIA WITHOUT LOWER URINRY TRACT SYMP Qualifiers: Lower urinary tract symptom presence: symptoms present
[2019-02-06] MEDS ORDERED: LIDOCAINE VISCOUS 2% ORAL/TOP 20 ML UNIT-DOSE CUP ONE (13:12)
[2019-02-06] MEDS ORDERED: LIDOCAINE VISCOUS 2% ORAL/TOP 20 ML UNIT-DOSE CUP MM ONE (13:40)
--- NOTE | 2019-02-06 14:31 | ECHO ---
Name: JUAN MANUEL, DOMENIC Exam:Transesophageal Echocardiogram Study Date: 02/06/2019 01:27 PM Age: 78 yrs Reason For Study: A-Fib Height: 70 in Weight: 187 lb BSA: 2.0 m2 Procedure: A 2D transesophageal echocardiogram with Doppler and color flow Doppler was performed. Informed conse nt for Transesophageal Echocardiogram, and use of a contrast agent as needed, was obtained prior to the proc edure. The patient was brought to the endoscopy suite in a fasting state. An intravenous line was placed. A topical anesthetic agent was used for oropharangeal anesthesia. A bite block was inserted. IV concious sedati on was administered using propafol. A multifrequency, multiplane transesopheageal echocardiographic endoscop e was inserted and manipulated in the standard fashion to achieve multiplane views. The usual views were ob tained; basal, mid-esophageal, transgastric and aortic views. The patient's vital signs, including blood pres sure, heart rate, pulse oximetry and cardiac rhythm were monitored throughout the procedure and remained st able. The patient tolerated the procedure well without evidence of orophangeal or esophageal trauma. There were no complications. The patient was in atrial flutter during the exam. Left Ventricle The left ventricle is normal in size. Left ventricular systolic function is normal. No regional wall motion abnormalities noted. Atria The left atrial size is normal. No thrombus is detected in the left atrial appendage. No left atrial mass or thrombus visualized. Right atrial size is normal. Injection of contrast documented no interatrial vicente nt. Mitral Valve There is mild mitral annular calcification. There is mild mitral regurgitation. Tricuspid Valve The tricuspid valve is normal in structure and function. There is mild tricuspid regurgitation. Aortic Valve There is mild aortic sclerosis.;. Mild aortic regurgitation. Pulmonic Valve The pulmonic valve is not well seen, but is grossly normal. Trace to mild pulmonic valvular regurgita tion. Great Vessels Diffuse atherosclerotic plaques in thoracic aorta and aortic arch. Pericardium/Pluera There is no pericardial effusion. Interpretation Summary The left ventricle is normal in size. Left ventricular systolic function is normal. No regional wall motion abnormalities noted. The left atrial size is normal. No thrombus is detected in the left atrial appendage. No left atrial mass or thrombus visualized. Right atrial size is normal. Injection of contrast documented no interatrial shunt. There is mild mitral annular calcification. There is mild mitral regurgitation. There is mild tricuspid regurgitation. There is mild aortic sclerosis. Mild aortic regurgitation. Trace to mild pulmonic valvular regurgitation. Diffuse atherosclerotic plaques in thoracic aorta and aortic arch There is no pericardial effusion. Rodo Santiago MD 02/06/2019 02:31 PM
[2019-02-07] MEDS: METOPROLOL TARTRATE 50 MG TABLET (FP) PO SCH ×3 (07:07→17:29)
[2019-02-07 11:10] VITALS: BP 126/74; PULSE 85; TEMP 98.6
[2019-02-07] MEDS: APIXABAN 5 MG TABLET PO SCH (11:11)
--- NOTE | 2019-02-07 14:34 | EKG ---
Test Reason : Blood Pressure : / mmHG Vent. Rate : 063 BPM Atrial Rate : 063 BPM P-R Int : 214 ms QRS Dur : 088 ms QT Int : 430 ms P-R-T Axes : 015 -04 023 degrees QTc Int : 440 ms SINUS RHYTHM WITH 1ST DEGREE A-V BLOCK WHEN COMPARED WITH ECG OF 03-FEB-2019 13:44, SINUS RHYTHM HAS REPLACED ATRIAL FLUTTER Confirmed by MARIA ISABEL OCHOA, MAURICIO ([id number]) on 02/07/2019 2:33:52 PM Referred By: ADÁN LAY DR Confirmed By:MAURICIO NICOLAS MD
--- NOTE | 2019-02-07 17:45 | DS ---
Physical Examination Vital Signs: Vital Signs Temperature 98.6 F 02/07/19 10:00 Pulse Rate 85 02/07/19 10:00 Respiratory Rate 18 02/07/19 10:00 Blood Pressure 126/74 02/07/19 10:00 O2 Sat by Pulse Oximetry (%) 98 02/07/19 09:00 Constitutional: Yes: Well Nourished, No Distress, Calm Eyes: Yes: Conjunctiva Clear Cardiovascular: Yes: Bradycardia Respiratory: Yes: CTA Bilaterally Gastrointestinal: Yes: Normal Bowel Sounds, Soft Edema: No Neurological: Yes: WNL ...Motor Strength: WNL Psychiatric: Yes: WNL Labs: CBC, BMP 02/03/19 11:25 02/04/19 05:30 Discharge Summary Problems reviewed: Yes Reason For Visit: ATRIAL FIBRILLATION Current Active Problems Afib (Acute) Atrial flutter with rapid ventricular response (Acute) BPH (benign prostatic hyperplasia) (Acute) Hypertension (Acute) Lipid disorder (Acute) New onset atrial flutter (Acute) DM Procedures: Principal: ERMIAS with Cardioversion Hospital Course: 78 YO M sent to ER when he was found to be in new onset ATF by his PCP. he had no complaints. Blood work was benign as was the troponins. Echo revealed NL LV Ej Fx. He was put on Eliquis and BB with some slowing of the HR but then under went ERMIAS with cardioversion and he went back into sinus and remained so for the next 24 Hrs. Today he feels okay with no complaints. Condition: Improved - Instructions Diet, Activity, Other Instructions: low salt; low starch sugar diet STOP: Lisinopril for now Disposition: HOME - Home Medications Comprehensive Discharge Medication List: Ambulatory Orders Aspirin [Ecotrin] 81 mg PO DAILY 02/03/19 Dutasteride [Avodart] 0.5 mg PO DAILY 02/03/19 Lopressor - 100 mg PO BID 02/03/19 Eliquis 5mg BID Simvastatin [Zocor] 10 mg PO HS 02/03/19
--- NOTE | 2019-02-07 19:02 | PN ---
Progress Note, Physician Chief Complaint: Pt is A&Ox3; no palpitations, dizziness, chest pain. History of Present Illness: 78-year-old white man (b. Jorge Alberto), with PM history of hypertension, recently diagnosed diabetes, admitted yesterday when sent from his primary's office for noted irregular heartbeat and tachycardia, and found to be in ?new-onset atrial flutter. Patient denies any current symptoms. Denies feeling short of breath no chest pain no palpitations. Also denies any cough or recent infectious symptoms no urinary complaints. No history of previous dysrhythmia or SC; overall has no current complaints - Objective Vital Signs: Vital Signs Temperature 98.6 F 02/07/19 10:00 Pulse Rate 85 02/07/19 10:00 Respiratory Rate 18 02/07/19 10:00 Blood Pressure 126/74 02/07/19 10:00 O2 Sat by Pulse Oximetry (%) 98 02/07/19 09:00 Constitutional: Yes: Calm Eyes: Yes: WNL Labs: CBC, BMP 02/03/19 11:25 02/04/19 05:30 INR, PTT INR 1.09 (0.83-1.09) 02/03/19 11:25 Problem List - Problems (1) New onset atrial flutter Assessment/Plan: On metoprolol tartrate 50 mg tid; change to ER once daily if VR remains controlled. Telemetry: Atrial flutter with variable AV block ECHO: normal LVEF; normal LA size For cardioversion today if ERMIAS results allow. Code(s): I48.92 - UNSPECIFIED ATRIAL FLUTTER (2) Hypertension Code(s): I10 - ESSENTIAL (PRIMARY) HYPERTENSION Qualifiers: Hypertension type: unspecified Qualified Code(s): I10 - Essential (primary ) hypertension (3) Lipid disorder Code(s): E78.9 - DISORDER OF LIPOPROTEIN METABOLISM, UNSPECIFIED
--- NOTE | 2019-02-07 19:03 | PN ---
Progress Note, Physician - Objective Vital Signs: Vital Signs Temperature 98.6 F 02/07/19 10:00 Pulse Rate 85 02/07/19 10:00 Respiratory Rate 18 02/07/19 10:00 Blood Pressure 126/74 02/07/19 10:00 O2 Sat by Pulse Oximetry (%) 98 02/07/19 09:00 Labs: CBC, BMP 02/03/19 11:25 02/04/19 05:30 INR, PTT INR 1.09 (0.83-1.09) 02/03/19 11:25 Problem List - Problems (1) Atrial flutter Code(s): I48.92 - UNSPECIFIED ATRIAL FLUTTER (2) New onset atrial flutter Code(s): I48.92 - UNSPECIFIED ATRIAL FLUTTER (3) Hypertension Code(s): I10 - ESSENTIAL (PRIMARY) HYPERTENSION Qualifiers: Hypertension type: unspecified Qualified Code(s): I10 - Essential (primary ) hypertension (4) Lipid disorder Code(s): E78.9 - DISORDER OF LIPOPROTEIN METABOLISM, UNSPECIFIED
== END 2019-02-07 19:01 | disposition home or self-care (01) | DRG 310 ==
LOC: JER 10:48 → JERBED 12:33 → J4W 17:28
PROVIDERS: ADMIT Internal Medicine; ATTEND Internal Medicine
PROC: B246ZZ4 Ultrasonography of Right and Left Heart, Transesophageal (ICD-10-PCS; 2019-02-06)
PROC: 5A2204Z Restoration of Cardiac Rhythm, Single (ICD-10-PCS; principal; 2019-02-06 13:00)
DX: I48.92 Unspecified atrial flutter (principal); I10 Essential (primary) hypertension; E78.5 Hyperlipidemia, unspecified; E11.9 Type 2 diabetes mellitus without complications; Z79.84 Long term (current) use of oral hypoglycemic drugs; I48.91 Unspecified atrial fibrillation; N40.0 Benign prostatic hyperplasia without lower urinary tract symptoms; I44.30 Unspecified atrioventricular block
CPT/HCPCS: 36415; 71045-TC-FY; 80048; 80053; 80061; 81003; 82550; 82962; 83036; 83721; 83735; 84443; 84484; 85025; 85610; 85730; 87086; 93005; 93010; 93306-TC; 93312; 93325; 99285-25; J7030